=== PATIENT | female | born 1950 | race Caucasian/White ===

== ENCOUNTER 2024-08-02 14:17 | Emergency (ER) | payer OTHER ==
[2024-08-02 14:31] VITALS: BP 126/75; PULSE 63; RESP 16; TEMP 98.3; BMI 27.1
[2024-08-02] MEDS ORDERED: ACETAMINOPHEN 325 MG TABLET (FP) ONE (14:55)
[2024-08-02] MEDS: ACETAMINOPHEN 500 MG TABLET (FP) PO ONE (14:57)
== END 2024-08-02 17:32 | disposition home or self-care (01) ==
LOC: JERFT 14:17
DX: M25.532 Pain in left wrist (principal); M25.561 Pain in right knee; M25.562 Pain in left knee; W01.0XXA Fall on same level from slipping, tripping and stumbling without subsequent striking against object, initial encounter
CPT/HCPCS: 73090-TC-LT-FY; 73110-TC-LT-FY; 73130-TC-LT-FY; 73562-TC-LT-FY; 73562-TC-RT-FY; 99284-25